=== PATIENT | female | born 1995 | race Hispanic/Latino ===

== ENCOUNTER 2025-01-11 21:46 | Emergency (ER) | payer SELFPAY ==
[~2025-01-11] VITALS: Ht 157.5 cm; Wt 115.7 kg
--- NOTE | 2025-01-11 21:51 | NUR ---
UA CUP PROVIDED
--- NOTE | 2025-01-11 22:44 | ERN ---
ED Note History of Present Illness Stated Complaint: HEADACHE Chief Complaint: Headache Time Seen by MD: 22:05 Time Seen by Midlevel: 22:06 Dictation: 29-year-old female presents to the emergency department due to reported having generalized headaches that is going on off and on for the past 2 months. She states that she was evaluated in other emergency department for which all the fine-needle was negative. At this time, she relates it as a date of 10. The patient states that she is feeling it as more as a stressful diltiazem sensation to her headache. There is no report of any nausea, vomiting, or change in visi on. Upon initial evaluation, the patient presents with a normal neurological examination. 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 Past Medical History Past Medical History: Migraines Surgical History: PSYCH History: no pertinent psych hx LMP: Jan 09, 2025 RN Note Reviewed/Agreed w/PFSH: Yes Review of System Dictation Neuro: Negative for headache, weakness, numbness, tingling, and seizure Initial Vital Sign VS Vital Signs Date Time Temp Pulse Resp B/P (MAP) Pulse Ox O2 Delivery O2 Flow Rate FiO2 01/11/25 21:47 98.1 100 20 150/93 100 Room Air Physical Exam Dictation General: awake, alert, NAD Head/Face: Normocephalic, atraumatic Eyes: PERRL, EOMI ENT: Oral mucosa moist Neck: Trachea midline, supple Cardiovascular: RRR, no edema Respiratory: Symmetrical, non-labored Abdomen: Soft, non-tender, non-distended, no guarding. Skin: Warm, dry, good turgor, no rash MS/Extremity: Pulses equal, no cyanosis, neurovascular intact, FROM Neuro: COAx4, GCS 15, steady gait, Psych: Normal behavior, mood, and affect normal ED Course ED Course Vital Signs Date Time Temp Pulse Resp B/P (MAP) Pulse Ox O2 Delivery O2 Flow Rate FiO2 01/11/25 21:47 98.1 100 20 150/93 100 Room Air Medical Decision Making MDM MDM: Acute headache, Differential diagnosis: Rationale: Tests considered and ordered secondary to shared decision making include: Previous outside records reviewed: Old ER visits. Risk of complication and/or morbidity or mortality of patient management: None Medications-Per medication reconciliation Need for hospitalization: Patient does not meet criteria for hospitalization. Need for emergency major/minor surgery: No There are no social concerns with this patient. Prescription drug management Prescriptions will include symptomatic care Patient's prior external medical records from other ER visits were reviewed by me as indicated. Prior testing and results from previous visits were reviewed. Prior tests were taken into account with medical decision making and resource u tilization, independent historian/historians were used to obtain complete medical history. I independently interpreted the test that were performed, results were reviewed by me and considered findings on radiology if ordered. Medical management and examination interpretation discussions were had by me with other qualified healthcare professionals as indicated for the patient's ca re. DX & DISP Disposition: Discharge Departure Impression: Primary Impression: Acute headache Condition: Stable Referrals: SELF,REFERRAL (PCP) JENNY VEGA Jan 11, 2025 22:44
[2025-01-11 22:56] VITALS: BP 145/87; PULSE 98; RESP 18; TEMP 98.4; O2SAT 99
== END 2025-01-11 23:09 | disposition home or self-care (01) ==
LOC: EDH 21:46
DX: G43.909 Migraine, unspecified, not intractable, without status migrainosus (principal); Z98.890 Other specified postprocedural states
CPT/HCPCS: 99281